=== PATIENT | male | born 1970 | race Caucasian/White ===

== ENCOUNTER 2020-11-20 07:05 | Day surgery (SDC) | payer OTHER ==
[~2020-11-20] VITALS: Ht 175.3 cm; Wt 73.4 kg
[~2020-11-20 07:05] MED LIST: HYDACE5 PO; Humira20 MG/0.4 SQ; Keflex500 MG PO; MECL25 PO; Norco 5-325 Ta1 EACH PO; ONDA8ODT MM; RXHYDACE PO; SILSUL1TC TOP; TRAM50 PO
--- NOTE | 2020-11-20 07:18 | NUR ---
Ambulatory in Day Surgery. Patient states colon prep results clear. History, Chart, Medications and Allergies reviewed before start of procedure. Lungs clear T/O to Auscultation. Patient confirms NPO status and agrees with scheduled surgery. Pre-Op teaching done. Pt verbalizes understanding. Patient States Post-Procedure ride home has been arranged.
--- NOTE | 2020-11-20 08:05 | NUR ---
11/20/20 0805 Mathew Sparrow History, Chart, Medications and Allergies reviewed before start of procedure. MONITOR INTACT WITH CONTINUOUS PULSE OXIMETRY AND INTERMITTENT BP. 3-LEAD EKG REVIEWED WITH PHYSICIAN PRIOR TO START OF PROCEDURE. O2 VIA N/C INTACT THROUGHOUT SEDATION/PROCEDURE. PATIENT DETERMINED TO BE ASA APPROPRIATE FOR PROPOFOL SEDATION PRIOR TO START OF PROCEDURE BY DR. MATIAS.
--- NOTE | 2020-11-20 08:52 | NUR ---
Patient up to Ambulate independently. Gait steady. Discharge instructions reviewed with patient. Patient verbalizes understanding. Copy given to patient to take home. Patient States Post-Procedure ride home has been arranged. Discharged via wheelchair to private car for ride home.
== END 2020-11-20 23:14 | disposition home or self-care (01) ==
LOC: ORSCMMR 07:05 → ORD 08:00 → ORSCMMR 23:14
PROVIDERS: Internal Medicine Gastroenterology
PROC: 0DJD8ZZ Inspection of Lower Intestinal Tract, Via Natural or Artificial Opening Endoscopic (ICD-10-PCS; principal; 2020-11-20 08:00)
DX: Z12.11 Encounter for screening for malignant neoplasm of colon (principal); K57.30 Diverticulosis of large intestine without perforation or abscess without bleeding
CPT/HCPCS: J0461; J2704; J7120

== ENCOUNTER 2021-06-21 10:15 | Day surgery (SDC) | payer BC ==
[~2021-06-21] VITALS: Ht 172.7 cm; Wt 74.5 kg
[~2021-06-21 10:15] MED LIST changes: +MULVITA PO
--- NOTE | 2021-06-21 10:42 | NUR ---
PT ADMITTED TO [facility]. AGREES WITH PLANNED SURGERY. LUNG SOUNDS CLEAR.
--- NOTE | 2021-06-21 11:47 | NUR ---
TOOK OVER PATIENT CARE AFTER REPORT WAS RECEIVED.
--- NOTE | 2021-06-21 13:57 | NUR ---
Dressing to procedure site clean, dry, intact with no visible drainage, swelling, erythema or bruising noted.
--- NOTE | 2021-06-21 14:37 | NUR ---
Discharge instructions reviewed with patient. Patient verbalizes understanding. Copy given to patient to take home. Discharged via wheelchair to private car for ride home.
== END 2021-06-21 14:39 | disposition home or self-care (01) ==
LOC: ORSCMMR 10:15 → ORD 11:30 → ORSCMMR 14:39
PROVIDERS: Surgery
PROC: 0YU50JZ Supplement Right Inguinal Region with Synthetic Substitute, Open Approach (ICD-10-PCS; principal; 2021-06-21 11:00)
DX: K40.90 Unilateral inguinal hernia, without obstruction or gangrene, not specified as recurrent (principal)
CPT/HCPCS: A9270; C1781; J0690; J1100; J1200; J1885; J2250; J2405; J2704; J3010; J7120

== ENCOUNTER 2025-05-30 18:14 | Emergency (ER) | payer BC ==
[~2025-05-30] VITALS: Ht 172.7 cm; Wt 74.8 kg
[2025-05-30] MEDS ORDERED: FentaNYL Citrate 50 MCG/ML 2 ML Injection IV PRN (18:20)
--- NOTE | 2025-05-30 18:41 | NUR ---
"Spiritual Care | Trauma Team When Pt. was brought in by ambulence this primary clinician connected with family who were already in the ED waiting area. After initial imaging, this primary clinician brought spouse to bedside. ZFacilitated some update, and the family welcomed prayer. Prayed with the Pt. and spouse and then updated the family of the Pts. condition as the request of the Pts. spouse."
[2025-05-30] MEDS ORDERED: Ondansetron HCl 2 MG / ML 2ML Vial IV ONE (18:55)
[2025-05-30] MEDS ORDERED: Ketorolac Tromethamine 15mg Vial IV ONE (19:30)
[2025-05-30] MEDS ORDERED: RX Prepack 6 Tabs Oxycodone 5mg UD ONE (19:30)
[2025-05-30] MEDS ORDERED: RX Prepack 2 Tabs Ondansetron ODT 4MG UD ONE (19:30)
[2025-05-30 20:30] VITALS: BP 137/86
[2025-05-30] MEDS ORDERED: Roxicodone5 MG PO (20:32)
[2025-05-30] MEDS ORDERED: Metoclopramide HCl 5MG / ML 2ML Vial IV ONE (21:00)
== END 2025-05-30 21:39 | disposition home or self-care (01) ==
LOC: ER 18:14
DX: S06.9X9A Unspecified intracranial injury with loss of consciousness of unspecified duration, initial encounter (principal); S42.031A Displaced fracture of lateral end of right clavicle, initial encounter for closed fracture; S42.021A Displaced fracture of shaft of right clavicle, initial encounter for closed fracture; S22.41XA Multiple fractures of ribs, right side, initial encounter for closed fracture; S00.81XA Abrasion of other part of head, initial encounter; V89.1XXA Person injured in unspecified nonmotor-vehicle accident, nontraffic, initial encounter
CPT/HCPCS: 70450; 71045; 73030; 96374; 96375; 99285-25; A9270; J1885; J2405; J2765; J3010